=== PATIENT | female | born 1975 | race Caucasian/White ===

== ENCOUNTER 2017-06-25 16:55 | Emergency (ER) | payer OTHER ==
[2017-06-25 17:04] VITALS: BP 128/65; BMI 41.9
--- NOTE | 2017-06-25 17:30 | PDOC ---
History of Present Illness - General Chief Complaint: Redness To Affected Area Stated Complaint: INSECT BITES TO LEFT HAND Time Seen by Provider: 06/25/17 16:59 - History of Present Illness Initial Comments: 06/25/17 17:24 42 yo F with h/o hypothyroidism presenting to ED with multiple bug bites to L hand. Pt states that several people at her workplace have been getting bitten by bugs. These bites on her hand appeared a few days ago and initially became very swollen and itchy. The swelling has since subsided but now she reports persistent itching. She states that she is concerned that it may be bedbugs. Pt denies any F/C. Denies any lesions anywhere else on her body. Denies seeing any spreading rash across her arm. Past History - Past Medical History Allergies/Adverse Reactions: Allergies Allergy/AdvReac Type Severity Reaction Status Date / Time No Known Allergies Allergy Verified 06/25/17 16:58 Home Medications: Ambulatory Orders NK [No Known Home Medication] 06/25/17 COPD: No Thyroid Disease: Yes - Suicide/Smoking/Psychosocial Hx Smoking History: Never smoked Have you smoked in the past 12 months: No Hx Alcohol Use: No Review of Systems - Review of Systems Comments:: 06/25/17 17:26 "GENERAL/CONSTITUTIONAL: No fever or chills. No weakness. HEAD, EYES, EARS, NOSE AND THROAT: No change in vision. No ear pain or discharge. No sore throat. CARDIOVASCULAR: No chest pain or shortness of breath. RESPIRATORY: No cough, wheezing, or hemoptysis. GASTROINTESTINAL: No nausea, vomiting, diarrhea or constipation. GENITOURINARY: No dysuria, frequency, or change in urination. MUSCULOSKELETAL: No joint or muscle swelling or pain. No neck or back pain. SKIN: + bug bites to L hand NEUROLOGIC: No headache, vertigo, loss of consciousness, or change in strength/ sensation. ENDOCRINE: No increased thirst. No abnormal weight change. HEMATOLOGIC/LYMPHATIC: No anemia, easy bleeding, or history of blood clots. ALLERGIC/IMMUNOLOGIC: No hives or skin allergy. " *Physical Exam - Vital Signs Last Vital Signs Temp Pulse Resp BP Pulse Ox 98.6 F 87 18 128/65 100 06/25/17 16:55 06/25/17 16:55 06/25/17 16:55 06/25/17 16:55 06/25/17 16:55 - Physical Exam Comments: 06/25/17 17:26 "GENERAL: Awake, alert, and fully oriented, in no acute distress HEAD: No signs of trauma EYES: PERRLA, EOMI, sclera anicteric, conjunctiva clear ENT: Auricles normal inspection, hearing grossly normal, nares patent, oropharynx clear without exudates. Moist mucosa NECK: Nontender, no stepoffs, Normal ROM, supple, no lymphadenopathy, JVD, or masses LUNGS: Breath sounds equal, clear to auscultation bilaterally. No wheezes, and no crackles HEART: Regular rate and rhythm, normal S1 and S2, no murmurs, rubs or gallops ABDOMEN: Soft, nontender, normoactive bowel sounds. No guarding, no rebound. No masses EXTREMITIES: Normal range of motion, no edema. No clubbing or cyanosis. No cords, erythema, or tenderness NEUROLOGICAL: Cranial nerves II through XII intact. 5/5 strength and sensation in all extremities, Normal speech, normal gait, normal cerebellar function SKIN: + 4 raised lesions on dorsum of L hand with mild erythema, no induration, no umbilication, no central clearing, no fluctuance " Medical Decision Making - Medical Decision Making 06/25/17 17:27 42 F with bug bites to L hand, possible bedbugs. No evidence of tick bites, no evidence of lyme disease. No signs of superinfection at this time. - Supportive care Pt is well appearing, with normal vitals. Clinically stable for DC at this time. I discussed the physical exam findings, ancillary test results and final diagnoses with the patient. I answered all of the patient's questions. The patient was satisfied with the care received and felt comfortable with the discharge plan and treatment plan. The patient agrees to follow up with the primary care physician within 24-72 hours. *DC/Admit/Observation/Transfer Diagnosis at time of Disposition: Bedbug bite - Discharge Dispostion Disposition: HOME Condition at time of disposition: Stable - Referrals Referrals: Johnathon Murguia MD [Staff Physician] - - Patient Instructions Printed Discharge Instructions: How to Get Rid of Bed Bugs, DI for Bed Bug Bites Additional Instructions: You may have bed bug bites on your hand. Use over the counter hydrocortisone ointment for itching. You can also take benadryl as needed at night to sleep. If you experience any worsening redness, swelling, pain, fevers, or any other concerning symptoms, return to the ER immediately. Otherwise, call the number provided to make an appointment with a primary care doctor within 1 week. - Post Discharge Activity - Attestations Physician Attestion: 06/25/17 17:31 I, Dr. Anson Hess MD, attest that this document has been prepared under my direction and personally reviewed by me in its entirety. I further attest, that it accurately reflects all work, treatment, procedures and medical decision -making performed by me.
[2017-06-25 17:37] VITALS: PULSE 87; TEMP 98.6
== END 2017-06-25 18:13 | disposition home or self-care (01) ==
LOC: FER 16:55
DX: S60.562A Insect bite (nonvenomous) of left hand, initial encounter (principal); E03.9 Hypothyroidism, unspecified; W57.XXXA Bitten or stung by nonvenomous insect and other nonvenomous arthropods, initial encounter; Y93.89 Activity, other specified; Y92.89 Other specified places as the place of occurrence of the external cause
CPT/HCPCS: 99282-25

== ENCOUNTER 2018-09-12 10:58 | Emergency (ER) | payer OTHER | END 2018-09-12 13:07 | disposition home or self-care (01) | LOC: FER 10:58 ==